=== PATIENT | female | born 1935 | race Caucasian/White ===

== ENCOUNTER → 2024-06-09 10:12 | Outpatient (REF) | payer OTHER, SELFPAY | LOC: HWRCS 10:12 | PROVIDERS: ATTENDING PHYSICIAN Nuclear Medicine Nuclear Cardiology; FAMILY PHYSICIAN Family Medicine | DX: R06.02 Shortness of breath (principal); I26.99 Other pulmonary embolism without acute cor pulmonale; I35.0 Nonrheumatic aortic (valve) stenosis | CPT/HCPCS: 93306 ==

== ENCOUNTER → 2024-08-25 07:06 | Outpatient (REF) | payer OTHER, SELFPAY | LOC: HWRCS 07:06 | PROVIDERS: ATTENDING PHYSICIAN Nuclear Medicine Nuclear Cardiology; FAMILY PHYSICIAN Family Medicine; REFERRING PHYSICIAN Nurse Practitioner Adult Health | DX: Z01.818 Encounter for other preprocedural examination (principal); I35.0 Nonrheumatic aortic (valve) stenosis; I26.99 Other pulmonary embolism without acute cor pulmonale; R06.02 Shortness of breath | CPT/HCPCS: 71046; 78452; 93017; A9500; J2785 ==

== ENCOUNTER 2024-09-05 09:38 | Inpatient (IN) | payer OTHER, SELFPAY ==
[2024-08-19 10:57] VITALS: BMI 28.2
[2024-08-19 11:38] LABS: Hematocrit 41.1 % (37.0-47.0); Hemoglobin 13.4 g/dL (12.0-16.0); Mean Corp Hgb Conc. 32.6 g/dL (33.0-37.0); Mean Corpuscular Hgb 29.5 pg (27.0-31.0); Mean Corpuscular Volume 90.3 fL (81.0-99.0); Mean Platelet Volume 9.4 fL (7.4-10.4); Platelet Count 201 10^3/uL (130-400); Red Blood Cell Count 4.55 10^6/uL (4.20-5.40); Red Cell Dist. Width 14.1 % (11.5-14.5); White Blood Cell Count 6.3 10^3/uL (4.8-10.8)
[2024-08-19 12:12] LABS: ALT (SGPT) 18 U/L (0-35); AST (SGOT) 26 U/L (14-36); Albumin 4.5 g/dl (3.5-5.0); Alkaline Phosphatase 62 U/L (38-126); Blood Urea Nitrogen 18 mg/dl (7-17); Calcium 9.5 mg/dl (8.4-10.2); Carbon Dioxide 27 mmol/L (22-30); Chloride 101 mmol/L (98-107); Estimated Creatinine Clearance 54 ml/min; Glucose 92 mg/dl (70-99); Potassium 5.2 mmol/L (3.5-5.1); Sodium 135 mmol/L (135-145); Total Protein 6.7 g/dl (6.3-8.2); eGFR > 60.00
[2024-08-19 12:45] LABS: Glycohemoglobin (HgbA1c) 5.7 % (4.0-5.6)
[2024-08-19 15:59] VITALS: BMI 28.2
[2024-09-05] VITALS (15 sets, daily range): BP systolic 116–154; BP diastolic 61–88; PULSE 73; O2SAT 99
[2024-09-05] MEDS: CELEBREX 200 MG PO (10:12)
[2024-09-05] MEDS: NORMOSOL-R/PLASMALYTE-A 1000 IV ×2 (10:14→14:25)
--- NOTE | 2024-09-05 12:55 | W.DS.TRANS ---
DC Summary - Plumber
-
Discharge Instructions:
Sleep Apnea Risk Low
Discharge Diagnosis/Procedures L ENE 09/05/24
Diet As tolerated
Activity With Walker
Additional Activity hip precautions
Driving Restrictions No driving
Bathing Restrictions OK to Shower
Other Services VN,PT,OT
Instructions:
Stand-Alone Forms: Total Hip/Knee Replacement D/C
Changes to Home Medications: Yes
Discharge Medications:
DC Medications w/original date entered in [employer]
albuterol sulfate 90 mcg/actuation aerosol inhaler 2 puff inhalation R Q4HPRN PRN shortness of breath 12/19/14
apixaban 2.5 mg tablet (Eliquis) 2.5 mg PO BID pulmonary embolism 06/08/23
fluoxetine 40 mg capsule 80 mg PO DAILY Mental Health/Anxiety 06/08/23
ipratropium 0.5 mg-albuterol 3 mg (2.5 mg base)/3 mL nebulization soln 3 ml inhalation Q6 PRN shortness of breath/cough 06/08/23
mupirocin 2 % topical ointment 1 applic intranasal BID #1 tube 08/19/24
Saccharomyces boulardii 250 mg capsule (Florastor) 250 mg PO BID #1 cap 09/05/24
acetaminophen 500 mg tablet (Tylenol Extra Strength) 1,000 mg (2 x 500 mg) PO QID #0 tabs 09/05/24
cefadroxil 500 mg capsule 500 mg PO BID infection prevention #14 caps 09/05/24
docusate sodium 100 mg capsule (Colace) 100 mg PO BID stool softner #1 cap 09/05/24
magnesium hydroxide 400 mg/5 mL oral suspension (Milk of Magnesia) 30 ml PO HS PRN Constipation #1 mL 09/05/24
ondansetron 4 mg disintegrating tablet 4 mg PO Q6H PRN n/v #20 tabs 09/05/24
prednisone 10 mg tablet 40 mg (4 x 10 mg) PO TAPER inflammation #20 tabs 09/05/24
sennosides 8.6 mg tablet (Senokot) 17.2 mg (2 x 8.6 mg) PO BID laxative #2 tabs 09/05/24
tramadol 50 mg tablet 50 mg PO Q6H PRN 1 tab moderate pain, 2 if severe #30 tabs 09/05/24
Home Medication Changes
mupirocin 2 % topical ointment 1 applic intranasal BID #1 tube 08/19/24
Saccharomyces boulardii 250 mg capsule (Florastor) 250 mg PO BID #1 cap 09/05/24
acetaminophen 500 mg tablet (Tylenol Extra Strength) 1,000 mg (2 x 500 mg) PO QID #0 tabs 09/05/24
cefadroxil 500 mg capsule 500 mg PO BID infection prevention #14 caps 09/05/24
docusate sodium 100 mg capsule (Colace) 100 mg PO BID stool softner #1 cap 09/05/24
magnesium hydroxide 400 mg/5 mL oral suspension (Milk of Magnesia) 30 ml PO HS PRN Constipation #1 mL 09/05/24
ondansetron 4 mg disintegrating tablet 4 mg PO Q6H PRN n/v #20 tabs 09/05/24
prednisone 10 mg tablet 40 mg (4 x 10 mg) PO TAPER inflammation #20 tabs 09/05/24
sennosides 8.6 mg tablet (Senokot) 17.2 mg (2 x 8.6 mg) PO BID laxative #2 tabs 09/05/24
tramadol 50 mg tablet 50 mg PO Q6H PRN 1 tab moderate pain, 2 if severe #30 tabs 09/05/24
Pending Results: No
--- NOTE | 2024-09-05 12:55 | W.PN.UPDATE ---
Addendum entered and electronically signed by Rosaura Doherty PA-C 09/05/24 15:29:
+Cefadroxil ppx outpatient Rx given respiratory suppression due to anesthesia and propencity for respiratory infections
Original Note:
Update Note
Progress Note Update
L ENE Dr. Ariza 09/05/24
Hx b/l PE-provoked, on Eliquis-SCD
COPD/Asthma-hx recurrent PNA w sepsis-IV Decadron inpatient with outpatient Prednisone taper-standing order nebs + incentive spirometry-monitor sats
Hx HSA-erovmkezj-osbqqr low dose asa to begin POD#3-should discuss statin w/ PCP-maintain good BP control
ambulatory dysfunctionw/ fall-+ precautions-home care PT/OT/QX-GX-czhrufkb opioids
[2024-09-05] MEDS: DILAUDID 0.25 MG IV ×3 (14:49→15:12)
[2024-09-05] MEDS: SUBLIMAZE 50 MCG IV (15:31)
[2024-09-05] MEDS: SUBLIMAZE 25 MCG IV (15:48)
[2024-09-05] MEDS: ULTRAM 50 MG PO (15:58)
[2024-09-05] MEDS: TYLENOL 650 MG PO ×2 (17:02→19:23)
[2024-09-05] MEDS: PROZAC 80 MG PO (17:02)
[2024-09-05] MEDS: DECADRON 4 MG IV ×2 (17:03→21:13)
[2024-09-05] MEDS: BACTROBAN 2% OINTMENT 1 APPLIC NASAL (19:23)
[2024-09-05] MEDS: COLACE 100 MG PO (19:23)
[2024-09-05] MEDS: SENOKOT 17.2 MG PO (19:23)
[2024-09-05] MEDS: ELIQUIS 2.5 MG PO (19:23)
[2024-09-05] MEDS: DUONEB 3 ML INH (20:31)
[2024-09-05] MEDS: ANCEF 5 IV (21:13)
[2024-09-05] MEDS: PEPCID 20 MG PO (21:13)
[2024-09-06] MEDS: TYLENOL 650 MG PO ×4 (00:16→11:42)
[2024-09-06 03:00] VITALS: BP 117/61
[2024-09-06] MEDS: ANCEF 5 IV (05:26)
[2024-09-06] MEDS: DUONEB 3 ML INH (07:14)
[2024-09-06 07:24] VITALS: BP 116/65
[2024-09-06] MEDS: BACTROBAN 2% OINTMENT 1 APPLIC NASAL (08:35)
[2024-09-06] MEDS: SENOKOT 17.2 MG PO (08:36)
[2024-09-06] MEDS: COLACE 100 MG PO (08:36)
[2024-09-06] MEDS: ELIQUIS 2.5 MG PO (08:36)
[2024-09-06] MEDS: PROZAC 80 MG PO (08:36)
[2024-09-06] MEDS: DECADRON 4 MG IV (08:37)
--- NOTE | 2024-09-06 09:26 | W.PN.ORTHO ---
Today's Communication / Plan
-
d/c
Assessment
.
Distal Motor Intact: Yes
Dressing:
Clean, dry and intact.
Assessment:
Hx b/l PE-provoked, on Eliquis-SCD
COPD/Asthma-hx recurrent PNA w sepsis-IV Decadron inpatient with outpatient Prednisone taper-standing order nebs + incentive spirometry-sats stable RA
Hx VEG-tdtxaufgm-igbmam low dose asa to begin POD#3-should discuss statin w/ PCP-BP well controlled
ambulatory dysfunction w/ fall-+ precautions-home care PT/OT/RM-LS-ucaqwyfs opioids
Plan
.
Surgery / Date: Anahi Ariza 09/05/24
DVT Prophylaxis: Other (Eliquis)
Activity:
Out of bed.
PT/OT
Discharge Plan: Home w/ VN
Subjective
.
.:
Patient resting comfortably.
Vital Signs and Labs
.
Vital Signs and Labs:
Lab Results
08/19/24 11:05
08/19/24 11:05
Temp Pulse Resp BP Pulse Ox
97.9 F 91 16 116/65 94
09/06/24 07:24 09/06/24 07:24 09/06/24 07:24 09/06/24 07:24 09/06/24 07:24
Non-invasive Hgb result: 12.6
Physical Exam
-
HEENT: No pallor, cyanosis, or jaundice. Throat clear.
NECK: Supple. No JVD.
RESPIRATORY: Lungs clear to auscultation.
CVS: S1, S2 normal. RRR.� No murmur, rub or gallop.
ABDOMEN: Soft, non-tender. No distension. BS+/normal.
EXTREMITIES: strength equal, no calf pain with palpation
MANAGER BILLING: AOx3. No focal deficits. finance analyst grossly intact
[2024-09-06 09:30] VITALS: BP 116/75; BP 131/68; PULSE 87; O2SAT 98
--- NOTE | 2024-09-06 09:45 | CM ---
Addendum entered by Kristine Coronado RN 09/06/24 14:31:
Received call from Cher[facility] Liaison. They do not accept the patient's insurance. Referrals sent and accepted by VN services. Patient contacted and updated on change.
Addendum entered by Kristine Coronado RN 09/06/24 10:16:
[facility] fax: [phone]
Original Note:
Reviewed the chart notes and spoke with the patient at the bedside. The patient resides alone in an independent apartment at [facility]. The patient has a rolling walker, shower chair, bsc. The patient has had VN in the past, but could not
recall the name of the agency, but no SNF. The patient confirmed her pharmacy of choice is the [facility] in [facility]. Discussed area VNs and the patient has selected [facility]. Referral to be sent via [facility]. Patient's daughter
will transport the patient home today. CM continues to be available to patient/family and is monitoring medical plan for needs at discharge.
Plan: Discharge to home with [facility] VN/PT/OT services.
[2024-09-06 11:33] VITALS: BP 109/69
== END 2024-09-06 12:25 | disposition home health service (06) | DRG 470 ==
LOC: 2 SOUTH 09:38
PROVIDERS: ADMITTING PHYSICIAN Specialist; FAMILY PHYSICIAN Family Medicine; REFERRING PHYSICIAN Nuclear Medicine Nuclear Cardiology
PROC: 0SRB02A Replacement of Left Hip Joint with Metal on Polyethylene Synthetic Substitute, Uncemented, Open Approach (ICD-10-PCS; 2024-09-05)
DX: M16.12 Unilateral primary osteoarthritis, left hip (principal); F31.32 Bipolar disorder, current episode depressed, moderate; J84.9 Interstitial pulmonary disease, unspecified; E78.5 Hyperlipidemia, unspecified; E87.5 Hyperkalemia; J44.89 Other specified chronic obstructive pulmonary disease; K21.9 Gastro-esophageal reflux disease without esophagitis; I27.20 Pulmonary hypertension, unspecified; R73.01 Impaired fasting glucose; I08.0 Rheumatic disorders of both mitral and aortic valves; Z86.711 Personal history of pulmonary embolism; Z96.653 Presence of artificial knee joint, bilateral; Z90.2 Acquired absence of lung [part of]; Z88.5 Allergy status to narcotic agent; Z87.891 Personal history of nicotine dependence; Z85.118 Personal history of other malignant neoplasm of bronchus and lung; Z79.01 Long term (current) use of anticoagulants; Z79.899 Other long term (current) drug therapy
CPT/HCPCS: 36415; 73502; 80053; 83036; 85027; 87070; 94640; 97110; 97116; 97163; 97166; 97530; 97535; C1713; C1776

== ENCOUNTER → 2025-05-05 12:31 | Outpatient (REF) | payer OTHER, SELFPAY | LOC: HWRAD 12:31 | PROVIDERS: ATTENDING PHYSICIAN Internal Medicine Critical Care Medicine; FAMILY PHYSICIAN Family Medicine | DX: R06.02 Shortness of breath (principal) | CPT/HCPCS: 71046 ==

== ENCOUNTER 2025-07-04 07:41 | Emergency (ER) | payer OTHER, SELFPAY ==
[2025-07-04] VITALS (7 sets, daily range): BP systolic 112–139; BP diastolic 66–78; BMI 29.9
--- NOTE | 2025-07-04 07:57 | ED.GENMED ---
History of Present Illness
General
Chief Complaint: Cough
Source: patient
Exam Limitations: none
Time Seen by Provider: 07/04/25 07:45
History of Present Illness
History of Present Illness:
89-year-old female presents via EMS from her independent living at [facility] with complaints of difficulty breathing and cough starting this morning. She denies a fever. There is some discomfort in her throat when she coughs. No chest pain
otherwise. No abdominal pain nausea or vomiting. She has a history of COPD, lung cancer, ex-smoker. She denies hemoptysis. No other complaints
Past History
Past History
ED Past Medical History: Cancer
ED Past Surgical History: Orthopedic and Other
Social History
Tobacco: Former smoker
Phy Exam
Physical Exam
Physical Exam:
General: Well-appearing female no acute respiratory distress
ENT: Normal cephalic atraumatic heart: Regular rate and rhythm
Lungs: Slight expiratory wheeze
Abdomen is soft nontender
Extremities: No cyanosis
Skin warm no rash
Course
Orders/Labs/Results
Orders:
Orders
07/04/25 07:46
EKG [Electrocardiogram (*1)] Urgent
Reason for Study: Shortness of Breath
EKG- Treatment ONCE
07/04/25 07:56
Dexamethasone Sod Phosphate [Decadron] 10 mg IV NOW STA
CR Chest - 2 Views Urgent
Comment:
Reason For Exam: cough
07/04/25 08:00
COVID-19 Antigen Urgent
Source: Nasal Swab
Complete Blood Count/With Diff Urgent
Comprehensive Metabolic Panel Urgent
Influenza A+B Rapid Molecular Urgent
JOHN Source: Nasal Swab
Specimen Description:
Abnormal Lab Results
07/04/25
08:00
MCHC 32.7 L g/dL
(33.0-37.0)
Absolute Monos (auto) 0.7 H 10^3/uL
(0.1-0.6)
BUN 18 H mg/dl
(7-17)
Glucose 112 H mg/dl
(70-99)
07/04/25 08:00
07/04/25 08:00
Vital Signs
Initial and Last Documented VS:
Initial Vital Signs
Temp Pulse Resp BP Pulse Ox
99.1 F 92 18 121/71 95
07/04/25 07:43 07/04/25 07:43 07/04/25 07:43 07/04/25 07:43 07/04/25 07:43
Last Documented Vital Signs
Temp Pulse Resp BP Pulse Ox
98.8 F 84 18 117/76 94
07/04/25 11:46 07/04/25 11:46 07/04/25 11:46 07/04/25 11:46 07/04/25 11:46
MDM/Problems Addressed
Differential Diagnosis Includes:
Patient presents with cough and difficulty breathing. Consider COVID flu bronchitis versus COPD exacerbation
Not hypoxic here but did receive a nebulizer and route. She feels much better after the nebulizer. Decadron will be added. Chest x-ray pending COVID and flu test pending.
*Pulse Oximetry
SaO2: 95
Oxygen Mode of Delivery: Room air
Patient hypoxic: no
*Critical Care Note
Total Time (30-74mins, 75-104mins- exclusive of procedures): Not Applicable
Update Note
Update Note:
Patient looks and feels much better. She has been ambulatory to the bathroom. No further cough or shortness of breath. Vital signs are stable chest x-ray is clear suspect possible COPD flare but no indication for admission. Stable for discharge
ED Attending Note
-
Portions of this chart may have been created with voice recognition software.� Occasional wrong word or��sound alike� substitutions may have occurred due to the inherent limitations of voice recognition software.
Discharge Plan
Departure
Patient Disposition: Home (Routine Discharge)
Date of Disposition: 07/04/25
Time of Disposition: 11:55
Patient with high blood pressure during this ER visit?: No
Discharge Problem:
COPD exacerbation
Instructions: Cough, Adult (DC)
Prescriptions:
No Action
albuterol sulfate 1 PUFF HFA aerosol inhaler
2 puff inhalation R Q4HPRN PRN (Reason: shortness of breath)
fluoxetine 40 mg capsule
80 mg PO DAILY
ipratropium-albuterol 0.5 mg-3 mg(2.5 mg base)/3 mL solution for nebulization
3 ml INHALATION Q6 PRN (Reason: shortness of breath/cough )
Eliquis 2.5 mg tablet
2.5 mg PO BID
mupirocin 2 % ointment
1 applic intranasal BID Qty: 1 0RF
Patient Comments:
last dose was this am- pt started this on 09/02/24
sennosides [Senokot] 8.6 mg tablet
17.2 mg PO BID Qty: 2 0RF
magnesium hydroxide [Milk of Magnesia] 400 mg/5 mL suspension
30 ml PO HS PRN (Reason: Constipation) Qty: 1 0RF
docusate sodium [Colace] 100 mg capsule
100 mg PO BID Qty: 1 0RF
acetaminophen [Tylenol Extra Strength] 500 mg Tablet
1,000 mg PO QID Qty: 0 0RF
prednisone 10 mg tablet
40 mg PO TAPER Qty: 20 0RF
Rx Instructions:
4 TABS X 2 DAYS, 3 TABS X 2 DAYS, 2 TABS X 2 DAYS, 1 TAB X 2 DAYS, THEN STOP
tramadol 50 mg tablet
50 mg PO Q6H PRN (Reason: 1 tab moderate pain, 2 if severe) Qty: 30 0RF
Rx Instructions:
ongoing therapy
cefadroxil 500 mg capsule
500 mg PO BID Qty: 14 0RF
Rx Instructions:
*Take w/ food
*Take w/ probiotic
*POST-OP USE
ondansetron 4 mg tablet,disintegrating
4 mg PO Q6H PRN (Reason: n/v) Qty: 20 0RF
Rx Instructions:
take 1/2h b/f pain med if recurrent nausea
allow to dissolve in mouth w/o water
Saccharomyces boulardii [Florastor] 250 mg capsule
250 mg PO BID Qty: 1 0RF
aspirin 81 mg tablet,delayed release (DR/EC)
81 mg PO DAILY Qty: 1 0RF
Rx Instructions:
take with food
--start 09/08/24
famotidine 20 mg tablet
20 mg PO HS Qty: 30 0RF
Rx Instructions:
post-op
Referrals:
Divya Pyle MD [Family Provider, Family Practice]
Activity Restrictions/Additional Instructions:
Continue to use your inhalers. Return if needed otherwise follow-up with your doctor
Interventions
Interventions:
*General Assessment Last Done: 07/04/25 07:43
*Neglect/Abuse Screening Last Done: 07/04/25 07:43
*ED COVID-19 Vaccine History Last Done: 07/04/25 07:43
*ED Influenza Vaccine History Last Done: 07/04/25 07:43
[facility] Fall Risk Assessment Tool Last Done: 07/04/25 07:43
*Risk Screen - Suicide (C-SSRS) Last Done: 07/04/25 07:43
ED- Pulmonary Assessment Last Done: 07/04/25 07:43
Discharge Date and Time
Print Language: MEXICAN
[2025-07-04 08:30] LABS: Hematocrit 41.3 % (37.0-47.0); Hemoglobin 13.5 g/dL (12.0-16.0); Mean Corp Hgb Conc. 32.7 g/dL (33.0-37.0); Mean Corpuscular Volume 91.0 fL (81.0-99.0); Nucleated Red Blood Cells % 0 %; Platelet Count 176 10^3/uL (130-400); Red Cell Dist. Width 14.4 % (11.5-14.5)
[2025-07-04 08:43] LABS: ALT (SGPT) 17 U/L (0-35); AST (SGOT) 23 U/L (14-36); Albumin 4.0 g/dl (3.5-5.0); Alkaline Phosphatase 56 U/L (38-126); Blood Urea Nitrogen 18 mg/dl (7-17); Calcium 8.8 mg/dl (8.4-10.2); Carbon Dioxide 27 mmol/L (22-30); Chloride 104 mmol/L (98-107); Estimated Creatinine Clearance 45 ml/min; Glucose 112 mg/dl (70-99); Potassium 4.1 mmol/L (3.5-5.1); Sodium 138 mmol/L (135-145); Total Protein 6.6 g/dl (6.3-8.2); eGFR > 60.00
[2025-07-04 08:45] LABS: COVID-19 Antigen Negative (Negative)
[2025-07-04] MEDS: DECADRON 10 MG IV (08:46)
== END 2025-07-04 12:38 | disposition home or self-care (01) ==
LOC: EMR 07:41
PROVIDERS: EMERGENCY PHYSICIAN Emergency Medicine; FAMILY PHYSICIAN Family Medicine
DX: J44.1 Chronic obstructive pulmonary disease with (acute) exacerbation (principal); Z85.118 Personal history of other malignant neoplasm of bronchus and lung; Z87.891 Personal history of nicotine dependence; Z11.52 Encounter for screening for COVID-19
CPT/HCPCS: 99285; 96374; 71046; 80053; 85025; 87502; 87811; 93005